=== PATIENT | male | born 1965 | race Caucasian/White ===

== ENCOUNTER 2017-05-21 18:54 | Emergency (ER) | payer MEDICAID ==
--- NOTE | 2017-05-21 20:43 | EDPHY ---
H & P Stated Complaint: r lower jaw/tooth swelling Source: Patient Exam Limitations: No limitations - Personal History Current Tetanus/Diphtheria Vaccine: Yes - Medical/Surgical History Hx Asthma: No Hx Chronic Respiratory Disease: No Hx Diabetes: No Hx Cardiac Disease: No Hx Renal Disease: No Hx Cirrhosis: No Hx Alcoholism: No Hx HIV/AIDS: No Hx Splenectomy or Spleen Trauma: No Other PMH: PMH- GERD, concussion age 21, lung issues/fx r jaw - Social History Smoking Status: Current every day smoker Time Seen by Provider: 05/21/17 19:58 HPI/ROS: CHIEF COMPLAINT: Right-sided facial swelling HISTORY OF PRESENT ILLNESS: 52-year-old male presents emergency department complaining of right-sided facial swelling. Patient reports yesterday he was doing job exercises opening and closing his mouth. He reports he felt 2 pops in his right lower jaw. Patient reports he broke his jaw 1 year ago though never had follow-up for this. He has had no symptoms or pain since this time until yesterday when he had this pop. Patient reports he has had increasing swelling in this right side of his face since this time. Patient states he is concerned the swelling is going into his throat. Patient denies fevers, he reports chills. He reports fatigue. No chest pain or shortness of breath. Patient does smoke tobacco cigarettes daily. REVIEW OF SYSTEMS: A comprehensive 10 point review of systems is otherwise negative aside from elements mentioned in the history of present illness. (Nadira Walsh) - Physical Exam Exam: General: Alert, nontoxic. ENT: Tympanic membranes clear, external auditory canal, external ear and surrounding soft tissue including over the mastoid unremarkable. Nasopharynx is not injected, there is no rhinorrhea. Oropharynx with poor dental hygiene, right lower 3rd molar is loose with surrounding erythema, no obvious abscess, swelling and tenderness to right mandible, no anterior cervical lymphadenopathy There is no exudate. No tonsillar hypertrophy. No asymmetry. The uvula is midline. No elevation of tongue. There is no hoarseness. No drooling, patient has good control of their oral secretions. No trismus. No stridor. Cardiac: Regular rate and rhythm. Respiratory: Lungs clear to auscultation bilaterally. Neurological: no meningismus. Skin: No rashes. (Nadira Walsh) Constitutional: Initial Vital Signs Temperature (C) 36.8 C 05/21/17 18:57 Heart Rate 71 05/21/17 18:57 Respiratory Rate 16 05/21/17 18:57 Blood Pressure 99/74 L 05/21/17 18:57 O2 Sat (%) 94 05/21/17 18:57 O2 Delivery Mode Room Air Allergies/Adverse Reactions: No Known Allergies Allergy (Verified 05/21/17 18:56) Home Medications: Medication Instructions Recorded Clindamycin HCl [Clindamycin] 300 mg PO QID 10 Days 05/21/17 Omeprazole 20 mg PO DAILY #30 capsule. 05/21/17 Medical Decision Making - Diagnostics Imaging: Discussed imaging studies w/ faculty i on call medical assistant Radiologist - Diagnostics Imaging Results: Imaging Impressions Face CT 05/21/17 20:43 Impression: Presumed dental abscess involving the right mandibular second molar with asymmetric right-sided facial swelling and equivocal soft tissue abscess in the lateral aspect of the mandible in the region of soft tissue swelling. Results called and discussed with Nadira Walsh NP on 05/21/2017 at 22:18 ED Course/Re-evaluation: IV established, CBC and chemistry panel obtained, creatinine is normal, white blood cell count was mildly elevated at 11,000. CT maxillofacial with IV contrast ordered. CT shows a dental abscess on the right. Patient has been given a dose of IV clindamycin. He will be discharged with a prescription for oral clindamycin. He has been given a dental referral. Patient is to do warm compresses, take ibuprofen, [place] severe pain and take antibiotics as prescribed. He is given strict return precautions for any worsening symptoms, new symptoms or concerns. (Nadira Walsh) Differential Diagnosis: Diagnosis considered but not limited to dental abscess, necrotizing fasciitis, fracture (Nadira Walsh) Other Provider: The patient was evaluated and managed by the Physician Felt Washing Machine Tender/ Nurse Practitioner. I discussed the patient's presentation and course with the midlevel provider with them and agree with the evaluation. My co-signature indicates that I have reviewed this chart and I agree with the findings and plan of care as documented. I am the secondary supervising physician. (Julia Bañuelos) - Data Points Laboratory Results: Laboratory Results 05/21/17 20:47 05/21/17 05/21/17 20:47 20:46 WBC 11.04 10^3/uL H 10^3/uL (3.80-9.50) RBC 4.76 10^6/uL 10^6/uL (4.40-6.38) Hgb 15.2 g/dL g/dL (13.7-17.5) POC Hgb 16.0 gm/dL gm/dL (13.7-17.5) Hct 42.8 % % (40.0-51.0) POC Hct 47 % % (40-51) MCV 89.9 fL fL (81.5-99.8) MCH 31.9 pg pg (27.9-34.1) MCHC 35.5 g/dL g/dL (32.4-36.7) RDW 13.1 % % (11.5-15.2) Plt Count 192 10^3/uL 10^3/uL (150-400) MPV 10.1 fL fL (8.7-11.7) Neut % (Auto) 68.8 % % (39.3-74.2) Lymph % (Auto) 19.1 % % (15.0-45.0) Sampson % (Auto) 10.7 % % (4.5-13.0) Eos % (Auto) 0.5 % L % (0.6-7.6) Baso % (Auto) 0.4 % % (0.3-1.7) Nucleat RBC Rel Count 0.0 % % (0.0-0.2) Absolute Neuts (auto) 7.60 10^3/uL H 10^3/uL (1.70-6.50) Absolute Lymphs (auto) 2.11 10^3/uL 10^3/uL (1.00-3.00) Absolute Monos (auto) 1.18 10^3/uL H 10^3/uL (0.30-0.80) Absolute Eos (auto) 0.05 10^3/uL 10^3/uL (0.03-0.40) Absolute Basos (auto) 0.04 10^3/uL 10^3/uL (0.02-0.10) Absolute Nucleated RBC 0.00 10^3/uL 10^3/uL (0-0.01) Immature Gran % 0.5 % % (0.0-1.1) Immature Gran # 0.06 10^3/uL 10^3/uL (0.00-0.10) POC Sodium 140 mEq/L mEq/L (134-144) POC Potassium 3.8 mEq/L mEq/L (3.3-5.0) POC Chloride 101 mEq/L mEq/L (97-110) POC BUN 18 mg/dL mg/dL (7-23) POC Creatinine 0.8 mg/dL mg/dL (0.7-1.3) POC Glucose 102 mg/dL H mg/dL (70-100) Medications Given: Discontinued Medications Hydrocodone Bitart/Acetaminophen ([place] 5/325mg Prepack#6) 1 btl TAKEHOME EDNOW ONE Stop: 05/21/17 23:07 Last Admin: 05/21/17 23:11 Dose: 1 btl Clindamycin Phosphate/Dextrose (Cleocin 600 Mg (Premix)) 50 mls @ 100 mls/hr IV EDNOW ONE PRN Reason: Protocol Stop: 05/21/17 22:53 Last Admin: 05/21/17 22:40 Dose: 50 mls Morphine Sulfate (Morphine) 2 mg IVP EDNOW ONE Stop: 05/21/17 21:58 Last Admin: 05/21/17 22:04 Dose: 2 mg Point of Care Test Results: 05/21/17 20:46 POC Sodium 140 POC Potassium 3.8 POC Chloride 101 POC BUN 18 POC Creatinine 0.8 POC Glucose 102 H Departure - Departure Disposition: Home, Routine, Self-Care Clinical Impression: Dental abscess Condition: Good Instructions: Hydrocodone/Acetaminophen (By mouth), Dental Abscess (ED) Additional Instructions: Take 600 mg of ibuprofen every 8 hours with food for 3-5 days, take your antibiotics as prescribed. Warm compresses to your right side of face 5 times a day for 5-10 minutes. Follow up with a dentist at 1st available appointment this week. Return to the emergency department for any new symptoms, worsening symptoms or concerns. Referrals: [facility] [Outside] - As per Instructions [facility] [Outside] - As per Instructions Dental [facility] [Outside] - As per Instructions Dental [facility] [Outside] - As per Instructions Dental [facility] [Outside] - As per Instructions Prescriptions: Clindamycin HCl [Clindamycin] 300 mg PO QID 10 Days Omeprazole 20 mg PO DAILY #30 capsule.
[2017-05-21 21:04] VITALS: PULSE 60
[2017-05-21 21:06] LABS: % IMMATURE GRANULYOCYTES 0.5 % (0.0-1.1); ABSOLUTE IMMATURE GRANULOCYTES 0.06 10^3/uL (0.00-0.10); ADD DIFF? NO; ADD MORPH? NO; ADD SCAN? NO; ATYPICAL LYMPHOCYTE FLAG 20 (0-99); FRAGMENT RBC FLAG 0 (0-99); HEMATOCRIT 42.8 % (40.0-51.0); HEMOGLOBIN 15.2 g/dL (13.7-17.5); LEFT SHIFT FLG 0 (0-99); LIPEMIA HEMOLYSIS FLAG 90 (0-99); MEAN CELL HEMOGLOBIN 31.9 pg (27.9-34.1); MEAN CELL HEMOGLOBIN CONCENTR. 35.5 g/dL (32.4-36.7); MEAN CELL VOLUME 89.9 fL (81.5-99.8); MEAN PLATELET VOLUME 10.1 fL (8.7-11.7); PLATELET CLUMPS FLAG 0 (0-99); PLATELET COUNT 192 10^3/uL (150-400); RED BLOOD CELL COUNT 4.76 10^6/uL (4.40-6.38); RED CELL DISTRIBUTION WIDTH 13.1 % (11.5-15.2)
[2017-05-21] MEDS ORDERED: IOPAMIDOL (ISOVUE-300) 100 ML BTL ONE (21:18)
[2017-05-21] MEDS ORDERED: CLINDAMYCIN 600 MG/DEXTROSE 50 ML IV ONE (22:24)
[2017-05-21 22:59] VITALS: BP 109/68; RESP 14; TEMP 98.6; O2SAT 94
[2017-05-21] MEDS ORDERED: HYDROCOD/APAP 5/325 PREPACK#6 BTL TAKEHOME ONE (23:06)
== END 2017-05-21 23:27 | disposition home or self-care (01) ==
DX: K04.7 Periapical abscess without sinus (principal); F17.210 Nicotine dependence, cigarettes, uncomplicated
CPT/HCPCS: 82947-QW; 96365; Q9967